=== PATIENT | female | born 1990 | race Caucasian/White ===

== ENCOUNTER 2024-01-23 05:40 | Day surgery (SDC) | payer BC, OTHER ==
[~2024-01-23 05:40] MED LIST: Pre Op ABX Message 1 EACH MISC MISCELLANE ONE
[2024-01-23] MEDS: IV FLUID CONTINUATION 1,000 ML IV ONE (06:50)
[2024-01-23 06:56] VITALS: TEMP 97
[2024-01-23] MEDS ORDERED: LACTATED RINGERS 1,000 ML BAG ONE (07:00)
[2024-01-23] MEDS ORDERED: BUPIVACAINE (PF) 0.25% 10 ML VIAL ONE (07:00)
[2024-01-23] MEDS: MIDAZOLAM 2 MG/2 ML VIAL IV ONE (07:07)
[2024-01-23] MEDS: DEXAMETHASONE SOD PHOSPHATE 4 MG/ML 1 ML VIAL IVP STA (07:08)
[2024-01-23] MEDS: ONDANSETRON 4 MG/2 ML VIAL IVP STA (07:08)
[2024-01-23] MEDS: IPRATROPIUM-ALBUTEROL 3 ML NEB INHALATION STA (07:21)
[2024-01-23] MEDS: BUPIVACAINE (PF) 0.25% 30 ML VIAL SQ ONE (07:24)
[2024-01-23 07:27] VITALS: BP 123/81; PULSE 76; RESP 17
[2024-01-23] MEDS ORDERED: NEOSTIGMINE 1 MG/ML 10 ML VIAL ONE (07:38)
[2024-01-23] MEDS ORDERED: PROPOFOL 10 MG/ML 20 ML VIAL IV ONE (07:38)
[2024-01-23] MEDS ORDERED: LIDOCAINE 1% INJ 10MG/ML (20 ML MDV) ONE (07:38)
[2024-01-23] MEDS ORDERED: ROCURONIUM 10 MG/ML (5 ML VIAL) IV ONE (07:38)
[2024-01-23] MEDS ORDERED: KETOROLAC 15 MG/ML 1 ML VIAL ONE (07:38)
[2024-01-23] MEDS ORDERED: GLYCOPYRROLATE 0.2 MG/ML 2 ML VIAL ONE (07:38)
[2024-01-23] MEDS ORDERED: MIDAZOLAM 2 MG/2 ML VIAL ONE (07:38)
[2024-01-23] MEDS ORDERED: fentaNYL (PF) 50 MCG/ML 2 ML AMP ONE (07:38)
[2024-01-23] MEDS ORDERED: SUCCINYLCHOLINE CHLORIDE 200 MG/10 ML VIAL IV ONE (07:38)
[2024-01-23] MEDS ORDERED: HYDROmorphone 0.5 MG/0.5 ML SYRINGE ONE ×2 (08:49→09:03)
[2024-01-23] MEDS ORDERED: ONDANSETRON 4 MG/2 ML VIAL ONE (10:51)
== END 2024-01-23 10:00 ==
LOC: OR 05:40
PROVIDERS: ATTEND Obstetrics & Gynecology Obstetrics
DX: Z30.2 Encounter for sterilization (principal); R10.2 Pelvic and perineal pain; N94.6 Dysmenorrhea, unspecified; J45.909 Unspecified asthma, uncomplicated; F32.A Depression, unspecified; K21.9 Gastro-esophageal reflux disease without esophagitis; E78.1 Pure hyperglyceridemia; M35.00 Sjogren syndrome, unspecified; E78.5 Hyperlipidemia, unspecified; K76.0 Fatty (change of) liver, not elsewhere classified; F41.9 Anxiety disorder, unspecified; M79.7 Fibromyalgia; F12.90 Cannabis use, unspecified, uncomplicated; Z79.51 Long term (current) use of inhaled steroids; Z79.899 Other long term (current) drug therapy; Z79.3 Long term (current) use of hormonal contraceptives; Z98.890 Other specified postprocedural states; Z90.89 Acquired absence of other organs; Z80.9 Family history of malignant neoplasm, unspecified
CPT/HCPCS: 81025; 88305